=== PATIENT | female | born 1940 | race Caucasian/White ===

== ENCOUNTER → 2016-11-16 | Outpatient (CLI) | payer OTHER, MEDICARE | LOC: FIMAGING 10:47 | PROVIDERS: ATTEND Physician Assistant Surgical | DX: Z09 Encounter for follow-up examination after completed treatment for conditions other than malignant neoplasm (principal); Z98.1 Arthrodesis status ==

== ENCOUNTER → 2017-01-29 | Outpatient (CLI) | payer OTHER, MEDICARE | LOC: FIMAGING 09:22 | PROVIDERS: ATTEND Physician Assistant Surgical | DX: Z47.89 Encounter for other orthopedic aftercare (principal); Z98.1 Arthrodesis status ==

== ENCOUNTER → 2017-02-22 | Outpatient (CLI) | payer OTHER, MEDICARE | LOC: FIMAGING 08:11 | PROVIDERS: ATTEND Physician Assistant | DX: M54.2 Cervicalgia (principal); G95.9 Disease of spinal cord, unspecified; M48.02 Spinal stenosis, cervical region; Z98.1 Arthrodesis status ==

== ENCOUNTER → 2017-05-07 | Outpatient (CLI) | payer OTHER, MEDICARE | LOC: FIMAGING 09:36 | PROVIDERS: ATTEND Physician Assistant | DX: Z09 Encounter for follow-up examination after completed treatment for conditions other than malignant neoplasm (principal); Z98.1 Arthrodesis status ==

== ENCOUNTER → 2017-06-18 | Outpatient (CLI) | payer OTHER, MEDICARE | LOC: FIMAGING 10:03 | PROVIDERS: ATTEND Physician Assistant | DX: M43.22 Fusion of spine, cervical region (principal); Z98.1 Arthrodesis status ==

== ENCOUNTER → 2017-09-05 | Outpatient (CLI) | payer OTHER, MEDICARE | LOC: FIMAGING 09:46 | PROVIDERS: ATTEND Physician Assistant Surgical | DX: Z09 Encounter for follow-up examination after completed treatment for conditions other than malignant neoplasm (principal); Z98.1 Arthrodesis status ==

== ENCOUNTER 2018-01-25 09:58 | Inpatient (IN) | payer OTHER, MEDICARE ==
--- NOTE | 2018-01-25 10:27 | EDPHY ---
General Time Seen by Provider: 01/25/18 10:05 Narrative: CHIEF COMPLAINT: Fall, hip pain HISTORY OF PRESENT ILLNESS: Patient presents by EMS and is seen at time of arrival. She complains of left hip pain status post fall. Just prior to arrival, she was walking when she stepped up onto a curb and lost her balance. She fell backwards, landing on her left hip. She struck her left elbow and left palm. She did not strike her head or lose consciousness. She has no headache or neck pain. No chest, back or abdominal pain. Her only complaint is severe pain in the left hip. Unable to bear weight. No numbness or tingling. Pain radiates into the anterior thigh. No incontinence of bowel or bladder. No trauma or injury elsewhere. No other associated complaints or modifying factors. She feels that this is up- to-date REVIEW OF SYSTEMS: Ten systems reviewed and are negative unless otherwise noted in the HPI PCP: [facility] SPECIALISTS: Dr. Fairchild PAST MEDICAL HISTORY: Cervical radiculopathy, lumbar stenosis, dyslipidemia, neurofibromas PAST SURGICAL HISTORY: Cervical spine surgery, lumbar spine surgery SOCIAL HISTORY: Denies smoking. Lives independently at [place] FAMILY HISTORY: Noncontributory EXAMINATION General Appearance: Alert, no distress Head: normocephalic, atraumatic. No Yepez sign. No raccoon eyes. No depression. Eyes: Pupils equal and round, no conjunctival pallor or injection ENT, Mouth: Mucous membranes moist Neck: Normal inspection, supple, non-tender Respiratory: Lungs are clear to auscultation. No wheezing, rhonchi or crackles Cardiovascular: Regular rate and rhythm. Symmetric radial pulses 2+. Symmetric DP pulses 2+ Gastrointestinal: Abdomen is soft and nontender Back: Kyphotic appearance. non-tender, no bony abnormalities Neurological: GCS 15. A&O, nonfocal, normal gait Skin: Warm and dry, neurofibromas globally. Superficial abrasion to the posterior left elbow and left hypo thenar eminence. No lacerations. Extremities: Deformity and internal rotation of the left hip. Tenderness to palpation of the left greater trochanter. Range of the hip not tested due to deformity and pain. Range of the left ankle symmetric to the right. There are good signs of perfusion to left lower extremity. No tenderness to the other extremities including painless full extension of the left elbow. Psychiatric: Mood and affect normal DIFFERENTIAL DIAGNOSES: Including but not limited to intertrochanteric fracture, subcapital fracture, femoral fracture, strain, sprain, pelvic fracture, abrasions MDM: 10:05 a.m. Mechanical fall with left hip pain and superficial abrasions to the left elbow and left palm. She has no bony tenderness in any location otherwise. She does have some internal rotation of the left hip. I do suspect hip fracture. Her abdominal exam is benign. She has no head strike or loss of consciousness, with no neck tenderness on exam. She is in no acute distress. Her NPO status is 8:00 a.m. Solids and liquids. No previous orthopedic surgeries on the extremities. 10:40 a.m. X-ray as read by me does reveal a left intertrochanteric/femoral neck hip fracture. Chest x-ray as read by me is no acute finding with chronic changes as noted 10:54 a.m. Case discussed with orthopedist Dr. Barnhart. He will consult on the patient. Notified that NPO status is 8:00 a.m.. 10:55 a.m. Case discussed with hospitalist Lauren Batista. Patient be admitted to Dr. Madison. Admitted in stable condition. She has been kept NPO in this emergency department. SUPERVISION: Patient was independently examined, but I discussed the case with my secondary supervising physician Dr. Harmon - Diagnostics Imaging Results: Imaging Impressions Chest X-Ray 01/25/18 10:05 Impression: Comminuted, displaced and angulated, left femoral neck fracture. 2. Portable Chest, 10:28 AM History: Hip fracture Comparison: None Findings: Lungs clear. Heart size and pulmonary vascularity are normal. There is a transverse subcapital left humeral neck fracture of uncertain acuity. The left humeral neck looks normal. No rib fracture is identified. Impression: 1. No evidence for fat embolism. 2. Right humeral neck fracture formerly of unknown chronicity. Correlation with symptoms is suggested. Hip X-Ray 01/25/18 10:05 Impression: Comminuted, displaced and angulated, left femoral neck fracture. 2. Portable Chest, 10:28 AM History: Hip fracture Comparison: None Findings: Lungs clear. Heart size and pulmonary vascularity are normal. There is a transverse subcapital left humeral neck fracture of uncertain acuity. The left humeral neck looks normal. No rib fracture is identified. Impression: 1. No evidence for fat embolism. 2. Right humeral neck fracture formerly of unknown chronicity. Correlation with symptoms is suggested. - History Smoking Status: Never smoked - Objective Vital Signs: Initial Vital Signs Temperature (C) 97.9 F 01/25/18 10:17 Heart Rate 72 01/25/18 10:17 Respiratory Rate 16 01/25/18 10:17 Blood Pressure 159/74 H 01/25/18 10:17 O2 Sat (%) 96 01/25/18 10:17 O2 Delivery Mode Room Air Allergies/Adverse Reactions: No Known Allergies Allergy (Verified 08/08/16 14:21) Home Medications: Medication Instructions Recorded Atorvastatin Calcium [Lipitor 20 20 mg PO DAILY 08/01/16 mg (*)] Acetaminophen [Tylenol 325mg (*)] 325 mg PO DAILY 01/25/18 Laboratory Results: Laboratory Results 01/25/18 10:45 01/25/18 10:45 01/25/18 01/25/18 01/25/18 10:45 10:45 10:45 WBC RBC Hgb Hct MCV MCH MCHC RDW Plt Count PT 13.4 SEC SEC (12.0-15.0) INR 1.00 (0.83-1.16) APTT 27.1 SEC SEC (23.0-38.0) Sodium 134 mEq/L L mEq/L (135-145) Potassium 4.8 mEq/L mEq/L (3.5-5.2) Chloride 104 mEq/L mEq/L (97-110) Carbon Dioxide 19 mEq/l L mEq/l (22-31) Anion Gap 11 mEq/L mEq/L (8-16) BUN 24 mg/dL H mg/dL (7-23) Creatinine 0.6 mg/dL mg/dL (0.6-1.0) Estimated GFR > 60 Glucose 121 mg/dL H mg/dL (70-100) Calcium 9.2 mg/dL mg/dL (8.5-10.4) 25-OH Vitamin D Total 22.4 ng/mL L ng/mL (30.0-100.0) Patient ABO/Rh 01/25/18 01/25/18 10:45 10:45 WBC 13.41 10^3/uL H 10^3/uL (3.80-9.50) RBC 4.38 10^6/uL 10^6/uL (4.18-5.33) Hgb 11.6 g/dL L g/dL (12.6-16.3) Hct 35.9 % L % (38.0-47.0) MCV 82.0 fL fL (81.5-99.8) MCH 26.5 pg L pg (27.9-34.1) MCHC 32.3 g/dL L g/dL (32.4-36.7) RDW 16.6 % H % (11.5-15.2) Plt Count 240 10^3/uL 10^3/uL (150-400) PT INR APTT Sodium Potassium Chloride Carbon Dioxide Anion Gap BUN Creatinine Estimated GFR Glucose Calcium 25-OH Vitamin D Total Patient ABO/Rh A POSITIVE Medications Given: Sodium Chloride (Ns) 1,000 mls @ 75 mls/hr IV CONT ARLINE Stop: 01/26/18 00:49 Last Admin: 01/25/18 11:47 Dose: 1,000 mls Discontinued Medications Morphine Sulfate (Morphine) 2 mg IVP EDNOW ONE Stop: 01/25/18 10:07 Last Admin: 01/25/18 11:14 Dose: 2 mg Ondansetron HCl (Zofran) 4 mg IVP EDNOW ONE Stop: 01/25/18 10:07 Last Admin: 01/25/18 11:13 Dose: 4 mg Departure - Departure Disposition: [facility] Inpatient Acute Clinical Impression: Fracture of femoral neck, left, closed Qualifiers: Encounter type: initial encounter Qualified Code(s): S72.002A - Fracture of unspecified part of neck of left femur, initial encounter for closed fracture Fall Qualifiers: Encounter type: initial encounter Qualified Code(s): W19.XXXA - Unspecified fall, initial encounter Condition: Good
[2018-01-25] MEDS: ONDANSETRON 4 MG/2 ML VIAL IVP ONE (11:13)
[2018-01-25] MEDS ORDERED: ONDANSETRON 4 MG/2 ML VIAL IVP PRN ×2 (11:18→17:29)
[2018-01-25] MEDS ORDERED: ACETAMINOPHEN 325 MG TAB PO PRN (11:18)
[2018-01-25 11:19] LABS: PROTIME(PATIENT) 13.4 SEC (12.0-15.0)
[2018-01-25] MEDS ORDERED: NS 1,000 ML IV SCH (11:30)
--- NOTE | 2018-01-25 11:43 | GHP ---
[f rep st] HISTORY AND PHYSICAL DATE OF ADMISSION: 01/25/2018 CHIEF COMPLAINT: Fall and left hip pain. HISTORY OF PRESENT ILLNESS: This is a 77-year-old female, lives independently, who fell today. She was stepping up on a curb, fell, and hit her left hip. She was not able to move her hip afterwards. She has normal sensation in her left foot after the fall and she is able to move her toes. She feel s better after morphine. She had no preceding chest pain, shortness of breath, or palpitations prior to her fall. She did not lose consciousness or hit her head. She has no cardiovascular or pulmonary medical problems. She is able to easily attain 4 METs. She c an walk indefinitely before getting short of breath and has no problem walking up a flight of stairs. PAST MEDICAL/SURGICAL HISTORY: 1. Hyperlipidemia. 2. Cervical, as well as lumbar, surgeries. 3. Neurofibromatosis. MEDICATIONS: Please see medication reconciliation. ALLERGIES: No known drug allergies. SOCIAL HISTORY: She does not drink or smoke. She is accompanied by her daughter. She lives at [facility]. FAMILY HISTORY: Reviewed and noncontributory. REVIEW OF SYSTEMS: 10-point review of systems is conducted and is negative except per HPI. PHYSICAL EXAM: VITAL SIGNS: Blood pressure 159/74, heart rate 72, respiration rate 16, saturating 9 6% on room air. Temperature is 36.6. GENERAL: The patient is a very pleasant female who is resting comfortably. No acute distress. HEENT: Normocephalic, atraumatic. CARDIOVASCULAR: Regular rate and rhythm. No murmurs, rubs, or gallops. PULMONARY: Lungs clear to auscultation bilaterally. ABD OMEN: Soft, nontender, nondistended. SKIN: Multiple neurofibromas. : No Booth. NEUROLOGIC: A lert and oriented x3. She is moving all extremities. PSYCHIATRIC: Normal mood and affect. EXTREMI TIES: Her left lower extremity to be externally rotated. She has motor and sensation intact in her l eft foot. LABORATORY DATA: White count is 13.4, hemoglobin 11.6. INR is 1.0. Sodium is 134, bicarb was 19. DATA: 1. I discussed this with Ankush Collins. Will plan on surgery later today. 2. I personally viewed and interpreted her hip x-ray. It shows a left hip fracture, intertrochanter ic. 3. I personally viewed and interpreted her chest x-ray. This shows an old right humeral fracture. No pneumonia or other infiltrates. IMPRESSION AND PLAN: 1. Left hip fracture: She will go to the OR today with Dr. Barnhart. She will be nothing by mouth, o n bedrest until then. Will provide adequate pain control, both intravenous, as well as by mouth. Wi ll check a vitamin D level. 2. Perioperative evaluation: She is able to attain 4 METs. This is an urgent surgery. She has a l ow risk for cardiovascular complications perioperatively. 3. Hyperlipidemia: Continue her statin. 4. Neurofibromatosis: No directed treatment at this time. 5. Mild hyponatremia: Should correct when she is able to take adequate by-mouth. 6. Anemia: This is lower than previous. However, her last was checked in 2016. Will check a CBC t omorrow. 7. Deep venous thrombosis prophylaxis: She will need postoperative deep vein thrombosis prophylaxis , will not start prior to surgery. 8. She would like to be full code/full tube. /[id number]/MODL
[2018-01-25] MEDS ORDERED: BUPIVACAINE/EPI 0.5% 30 ML SDV ONE (15:17)
--- NOTE | 2018-01-25 15:45 | PDMN ---
Medical Necessity Medical necessity: est los> 2mn for L hip fx r/t mechanical fall, mild hyponatremia, and anemia; admit for urgent surgical repair, recheck CBC; hx hld , neurofibromatosis; per order and H&P 01/25/18
--- NOTE | 2018-01-25 15:50 | GCON ---
[f rep st] CONSULTATION DATE OF CONSULTATION: 01/25/2018 CHIEF COMPLAINT: Left hip fracture. HISTORY OF PRESENT ILLNESS: The patient is a 77-year-old woman who was stepping up on a curb and mis sed her footing landing across her left hip. She was unable to move afterward. She was brought to [facility] emergency department where x-rays demonstrated an intertrochanteric femur fracture with displaceme nt. She normally lives independently and ambulates independently. She denied any loss of consciousn ess, chest pain, or other focal complaints. She has no other focal complaints currently. PAST MEDICAL HISTORY: Hyperlipidemia, neurofibromatosis. PAST SURGICAL HISTORY: She has had cervical and lumbar surgeries. MEDICATIONS: See medicine reconciliation. ALLERGIES: No known drug allergies. SOCIAL HISTORY: Denies any tobacco, alcohol. She lives at [place]. REVIEW OF SYSTEMS: Negative for current chest pain, shortness of breath, belly pain, back pain, numb ness, tingling, other joint-related complaints. OBJECTIVE: GENERAL: Objectively, this is healthy elderly woman, in no acute distress. She is pleas ant cooperative examination. HEENT: Normocephalic, atraumatic. NECK: Nontender. She has neurofibro matosis throughout her skin. Abrasion to the left elbow. There is no step-off, crepitus or deformity. 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 There is no snuffbox tenderness. Digital tenderness in the bi lateral upper extremities. Negative radial, ulnar and median nerve sensory deficit. Left lower extre mity is shortened and externally rotated. She has tenderness across the left hip, minimal examinatio n is carried out. She has no other focal crepitus or tenderness throughout the knee or bilateral low er extremities. She has no right hip tenderness. Intact sensation to light touch throughout both lo wer extremities. Intact ankle plantar flexion, dorsiflexion, and 2+ dorsalis pedis pulses bilaterall y. X-rays demonstrated a comminuted displaced intertrochanteric femur fracture to her left hip. TREATMENT PLAN: I have recommended surgical stabilization. I have outlined the surgical procedure, risks, benefits, and alternatives. She wished to proceed. Written consent was signed and placed in patient's chart. The left hip was clearly demarcated as the operative site with indelible marker. S he will be given 2 g of Ancef preoperatively. /[id number]/MODL
--- NOTE | 2018-01-25 15:57 | PDANEPAE ---
ANE Past Medical History - Cardiovascular History Hx Hypertension: Yes Hx Arrhythmias: No Hx Chest Pain: No Hx Coronary Artery / Peripheral Vascular Disease: No Hx CHF / Valvular Disease: No Hx Palpitations: No Cardiovascular History Comment: HYPERCHOLESTEREMIA. RECENTLY OFF BP MEDICATIONS - Pulmonary History Hx COPD: No Hx Asthma/Reactive Airway Disease: No Hx Recent Upper Respiratory Infection: No Hx Oxygen in Use at Home: No Hx Sleep Apnea: No - Neurologic History Hx Cerebrovascular Accident: No Hx Seizures: No Hx Dementia: No Neurologic History Comment: HX OF ACDF WITH RAJPAL 12/10/15. NUMBNESS AND TINGLING TO BILATERAL HANDS - Endocrine History Hx Diabetes: No Endocrine History Comment: HYPOTHYROIDISM - Renal History Hx Renal Disorders: No - Liver History Hx Hepatic Disorders: No - Neurological & Psychiatric Hx Hx Neurological and Psychiatric Disorders: No - Cancer History Hx Cancer: No - Congenital Disorder History Hx Congenital Disorders: No - GI History Hx Gastrointestinal Disorders: No - Other Health History Other Health History: WEARS GLASSES. FULL SET OF DENTURES. TUMORS ON SKIN- - Chronic Pain History Chronic Pain: No - Surgical History Prior Surgeries: 12/10/15 ACDF C4-5 C5-6 WITH RAJPAL. CARPAL TUNNEL SURGERY TO RIGHT HAND X2 ANE Review of Systems Review of Systems: ANE Patient History - Allergies Allergies/Adverse Reactions: No Known Allergies Allergy (Verified 08/08/16 14:21) - Home Medications Home Medications: Atorvastatin Calcium [Lipitor 20 mg (*)] 20 mg PO DAILY 08/01/16 [Last Taken Unknown] Acetaminophen [Tylenol 325mg (*)] 325 mg PO DAILY 01/25/18 [Last Taken Unknown] - Smoking Hx Smoking Status: Never smoked - Family Anes Hx Family Hx Anesthesia Complications: NONE ANE Labs/Vital Signs - Labs Result Diagrams: 01/25/18 10:45 01/25/18 10:45 - Vital Signs Blood Pressure: 134/64 Heart Rate: 75 Respiratory Rate: 16 O2 Sat (%): 99 Height: 149.86 cm Weight: 42.638 kg ANE Physical Exam - Airway Neck exam: FROM Mallampati Score: Class 3 Mouth exam: dentures - Pulmonary Pulmonary: no respiratory distress - Cardiovascular Cardiovascular: regular rate and rhythym - ASA Status ASA Status: II ANE Anesthesia Plan Anesthesia Plan: general endotracheal anesthesia
[2018-01-25] MEDS ORDERED: ceFAZolin 2 GM/SWFI 2 GM/20 ML SYR IVP ONE (16:00)
[2018-01-25] MEDS ORDERED: PROPOFOL 200 MG/20 ML VIAL ONE (16:09)
[2018-01-25] MEDS ORDERED: LIDOCAINE 2% 100 MG/5 ML SYR ONE (16:09)
[2018-01-25] MEDS ORDERED: DEXAMETHASONE 4 MG/ML VIAL ONE (16:09)
[2018-01-25] MEDS ORDERED: fentaNYL 100 MCG/2 ML INJ ONE ×2 (16:09→16:26)
[2018-01-25] MEDS ORDERED: METOCLOPRAMIDE 10 MG/2 ML VIAL ONE (16:09)
[2018-01-25] MEDS ORDERED: ROCURONIUM 50 MG/5 ML VIAL ONE (16:09)
[2018-01-25] MEDS ORDERED: SUGAMMADEX SODIUM 200 MG/2 ML VIAL IVP ONE (17:00)
[2018-01-25] MEDS ORDERED: ALBUTEROL 3 ML DEYVIAL IH PRN (17:29)
[2018-01-25] MEDS ORDERED: NALOXONE HCL 0.4 MG/ML INJ IVP PRN (17:29)
[2018-01-25] MEDS ORDERED: fentaNYL 100 MCG/2 ML INJ IVP PRN (17:29)
--- NOTE | 2018-01-25 17:31 | POSTANESTH ---
Post Anesthetic Evaluation Cardiovascular Status: Similar to Pre-Op Cond Respiratory Status: Similar to Pre-op Cond. Level of Consciousness/Mental Status: Mildly Sleepy, Arousable Pain Control: Adequate, Prn Tx Ordered Nausea/Vomiting Control: Adequate, Prn Tx Ordered Complications Possibly Related to Anesthesia: None Noted
[2018-01-26 05:01] LABS: PLATELET COUNT 211 10^3/uL (150-400)
--- NOTE | 2018-01-26 07:09 | SOAPPROG ---
DINAH Progress Note Assessment/Plan: Assessment: s/p orif left intertroch fx Plan:patient demonstrates anterior position of nail within femur. I have recommended return to the operating room for revision. I have outlined the risks, benefits and alternative with her at length. I am concerned that as she mobilizes she will cut out of the anterior cortex of the femoral head. she wishes to proceed with revision after she will remain tdwb 01/26/18 07:05 Subjective: mild to mod groin pain no cp or sob Objective: Vital Signs Temp Pulse Resp BP Pulse Ox 37.1 C 82 16 124/60 H 95 01/26/18 04:00 01/26/18 04:00 01/26/18 04:00 01/26/18 04:00 01/26/18 04:00 Laboratory Results 01/26/18 04:10 01/25/18 01/26/18 01/27/18 05:59 05:59 05:59 Intake Total 2057 Output Total 870 Balance 1187 PT 13.4 SEC (12.0-15.0) 01/25/18 10:45 INR 1.00 (0.83-1.16) 01/25/18 10:45 dressing intact old serrous drainage left lower ext with approx 15 deg internal rotation neg homans adam xrays anterior displacement within femur of nail at intertrochanteric area, comminution at greater trochanter ICD10 Worksheet Patient Problems: Problems Problem Status Onset Fall Acute Fracture of femoral neck, left, closed Acute Lumbar stenosis Acute
[2018-01-26] MEDS ORDERED: BUPIVACAINE/EPI 0.5% 30 ML SDV ONE (07:12)
[2018-01-26] MEDS ORDERED: MIDAZOLAM 2 MG/2 ML VIAL IVP ONE (08:00)
[2018-01-26] MEDS ORDERED: MIDAZOLAM 2 MG/2 ML VIAL ONE (08:01)
--- NOTE | 2018-01-26 08:02 | PDANEPAE ---
ANE History of Present Illness Revision TFN ANE Past Medical History - Cardiovascular History Hx Hypertension: Yes Hx Arrhythmias: No Hx Chest Pain: No Hx Coronary Artery / Peripheral Vascular Disease: No Hx CHF / Valvular Disease: No Hx Palpitations: No Cardiovascular History Comment: HYPERCHOLESTEREMIA. RECENTLY OFF BP MEDICATIONS - Pulmonary History Hx COPD: No Hx Asthma/Reactive Airway Disease: No Hx Recent Upper Respiratory Infection: No Hx Oxygen in Use at Home: No Hx Sleep Apnea: No Sleep Apnea Screening Result - Last Documented: Negative - Neurologic History Hx Cerebrovascular Accident: No Hx Seizures: No Hx Dementia: No Neurologic History Comment: HX OF ACDF WITH RAJPAL 12/10/15. NUMBNESS AND TINGLING TO BILATERAL HANDS - Endocrine History Hx Diabetes: No Hypothyroid: No Hyperthyroid: No Obesity: no Endocrine History Comment: HYPOTHYROIDISM - Renal History Hx Renal Disorders: No - Liver History Hx Hepatic Disorders: No - Neurological & Psychiatric Hx Hx Neurological and Psychiatric Disorders: No - Cancer History Hx Cancer: No - Congenital Disorder History Hx Congenital Disorders: No - GI History GERD: mild Hx Gastrointestinal Disorders: No - Other Health History Other Health History: WEARS GLASSES. FULL SET OF DENTURES. TUMORS ON SKIN- - Chronic Pain History Chronic Pain: No - Surgical History Prior Surgeries: 12/10/15 ACDF C4-5 C5-6 WITH RAJPAL. CARPAL TUNNEL SURGERY TO RIGHT HAND X2 ANE Review of Systems Review of Systems: - Exercise capacity METS (RN): 2 METS ANE Patient History - Allergies Allergies/Adverse Reactions: No Known Allergies Allergy (Verified 08/08/16 14:21) - Home Medications Home medications: home medication list seen and reviewed Home Medications: Atorvastatin Calcium [Lipitor 20 mg (*)] 20 mg PO DAILY 08/01/16 [Last Taken Unknown] Acetaminophen [Tylenol 325mg (*)] 325 mg PO DAILY 01/25/18 [Last Taken Unknown] - NPO status NPO Since - Liquids (Date): 01/26/18 NPO Since - Liquids (Time): 06:00 NPO Since - Solids (Date): 01/26/18 NPO Since - Solids (Time): 06:00 - Anes Hx Anes Hx: no prior problems - Smoking Hx Smoking Status: Never smoked - Family Anes Hx Family Hx Anesthesia Complications: NONE ANE Labs/Vital Signs - Labs Result Diagrams: 01/26/18 04:10 01/25/18 10:45 - Vital Signs Blood Pressure: 124/60 Heart Rate: 82 Respiratory Rate: 16 O2 Sat (%): 95 Height: 149.86 cm Weight: 42.638 kg ANE Physical Exam - Airway Neck exam: decreased ROM Mouth exam: dentures - Pulmonary Pulmonary: no respiratory distress, no rales or rhonchi - Cardiovascular Cardiovascular: regular rate and rhythym, no murmur, rub, or gallop ANE Anesthesia Plan Anesthesia Plan: general endotracheal anesthesia Specialized Airway: video laryngoscope
[2018-01-26] MEDS ORDERED: fentaNYL 100 MCG/2 ML INJ ONE ×3 (08:10→10:16)
[2018-01-26] MEDS ORDERED: PROPOFOL 200 MG/20 ML VIAL ONE ×2 (08:10→08:52)
[2018-01-26] MEDS ORDERED: GLYCOPYRROLATE 0.2 MG/1 ML VIAL ONE (08:52)
[2018-01-26] MEDS ORDERED: ROCURONIUM 50 MG/5 ML VIAL ONE (08:52)
[2018-01-26] MEDS ORDERED: ONDANSETRON 4 MG/2 ML VIAL ONE ×2 (08:52→08:53)
[2018-01-26] MEDS ORDERED: ALBUMIN 5% 250 ML BOTTLE IV ONE (08:57)
[2018-01-26] MEDS ORDERED: ATORVASTATIN CALCIUM 20 MG TAB PO SCH (09:00)
[2018-01-26] MEDS ORDERED: SUGAMMADEX SODIUM 200 MG/2 ML VIAL IVP ONE (09:20)
[2018-01-26] MEDS ORDERED: HYDROmorphONE/DILAUDID 2 MG/ML INJ IVP PRN (09:42)
[2018-01-26] MEDS ORDERED: NALOXONE HCL 0.4 MG/ML INJ IVP PRN (09:42)
[2018-01-26] MEDS: fentaNYL 100 MCG/2 ML INJ IVP PRN ×2 (10:18→10:25)
--- NOTE | 2018-01-26 10:33 | ASMTCMCOM ---
CM Note CM Note Notes: Pt admitted with L hip fx r/t mechanical fall; currently having surgery. PT/OT ordered; awaiting post op evals. Per previous CM notes, pt lives at [facility] in [place]. Called [place] [facility] ([phone]) to confirm; informed pt is indeed a independent living resident. Pt has had [facility] in the past & has also been to [facility]. Pt's daughter Melyssa ([phone]) lives locally. CM will continue to follow. Date Signed: 01/26/2018 10:32 AM Electronically Signed By:Sofia Dockery RN
--- NOTE | 2018-01-26 12:30 | HOSPPROG ---
Hospitalist Progress Note Assessment/Plan: # hip fracture s/p IM nail, returned for revision today by dr barnhart - DVT ppx when ok with Dr Barnhart # suspected pathologic fracture d/t osteoporosis after fall from standing height - f/u PCP for treatment # HLD - statin # neurofibromatosis # hypoNa - recheck tomorrow # low vit D - replete Subjective: returned to the OR this am; denies CP/SOB/N/V; sensation ok in L foot Objective: Vital Signs Temp Pulse Resp BP Pulse Ox 36.5 C 85 16 134/54 H 93 01/26/18 12:13 01/26/18 12:13 01/26/18 12:13 01/26/18 12:13 01/26/18 12:13 Laboratory Results 01/26/18 04:10 01/25/18 01/26/18 01/27/18 05:59 05:59 05:59 Intake Total 2057 1300 Output Total 870 650 Balance 1187 650 PT 13.4 SEC (12.0-15.0) 01/25/18 10:45 INR 1.00 (0.83-1.16) 01/25/18 10:45 chart reviewed hip XR personally reviewed - Physical Exam Constitutional: no apparent distress, appears nourished, other (many neurofibromas) Cardiovascular: regular rate and rhythym, no murmur, rub, or gallop Respiratory: no respiratory distress, no rales or rhonchi, clear to auscultation Gastrointestinal: soft, non-tender abdomen, no palpable masses, No guarding, No rebound, No distension ICD10 Worksheet Patient Problems: Problems Problem Status Onset Lumbar stenosis Acute Fracture of femoral neck, left, closed Acute Fall Acute
[2018-01-26] MEDS: HYDROCODONE/APAP 5/325 TAB PO PRN ×2 (13:26→20:41)
[2018-01-26] MEDS ORDERED: NS 1,000 ML IV SCH (20:00)
[2018-01-26] MEDS: ATORVASTATIN CALCIUM 20 MG TAB PO SCH (20:36)
[2018-01-27] MEDS: HYDROCODONE/APAP 5/325 TAB PO PRN ×2 (02:32→07:51)
[2018-01-27] MEDS: CHOLECALCIFEROL VIT D3 2,000 UNITS TAB/CAP PO SCH (07:51)
[2018-01-27] MEDS ORDERED: LACTULOSE 20 GM/30 ML UDCUP PO PRN (10:18)
[2018-01-27] MEDS ORDERED: MAGNESIUM HYDROXIDE 30 ML UDCUP PO PRN (10:18)
[2018-01-27] MEDS ORDERED: BISACODYL 10 MG SUPP PR PRN (10:18)
[2018-01-27] MEDS ORDERED: POLYETHYLENE GLYCOL 3350 17 GM PKT PO PRN (10:18)
--- NOTE | 2018-01-27 11:12 | HOSPPROG ---
Hospitalist Progress Note Assessment/Plan: # hip fracture s/p IM nail, returned for revision yesterday by dr barnhart - DVT ppx when ok with Dr Barnhart # ABLA - s/p 1U PRBC yesterday - recheck CBC today # suspected pathologic fracture d/t osteoporosis after fall from standing height - f/u PCP for treatment # low vit D - replete # HLD - statin # neurofibromatosis # hypoNa - recheck tomorrow Subjective: ongoing nausea and pain Objective: Vital Signs Temp Pulse Resp BP Pulse Ox 36.9 C 74 16 127/55 H 97 01/27/18 07:17 01/27/18 07:17 01/27/18 07:17 01/27/18 07:17 01/27/18 07:17 Laboratory Results 01/26/18 04:10 01/27/18 05:45 01/26/18 01/27/18 01/28/18 05:59 05:59 05:59 Intake Total 2057 2856 Output Total 870 1730 Balance 1187 1126 PT 13.4 SEC (12.0-15.0) 01/25/18 10:45 INR 1.00 (0.83-1.16) 01/25/18 10:45 high risk on iv narcotics - Physical Exam Constitutional: uncomfortable Cardiovascular: regular rate and rhythym, no murmur, rub, or gallop Respiratory: no respiratory distress, no rales or rhonchi, clear to auscultation Gastrointestinal: soft, non-tender abdomen, no palpable masses Musculoskeletal: other (L hip with gauze that is CDI) ICD10 Worksheet Patient Problems: Problems Problem Status Onset Lumbar stenosis Acute Fracture of femoral neck, left, closed Acute Fall Acute
[2018-01-27] MEDS: ONDANSETRON DISINTEGRATING 4 MG TAB PO PRN ×2 (11:45→17:44)
[2018-01-27] MEDS: oxyCODONE IR 5 MG TAB PO PRN ×2 (11:45→16:09)
[2018-01-27] MEDS ORDERED: DIAZEPAM 5 MG/ML 1 ML SYR IVP PRN (11:51)
[2018-01-27] MEDS ORDERED: DIAZEPAM 5 MG TAB PO PRN (11:55)
[2018-01-27] MEDS: ACETAMINOPHEN 500 MG TAB PO SCH ×2 (16:08→21:52)
--- NOTE | 2018-01-27 17:19 | SOAPPROG ---
SOAP Progress Note Assessment/Plan: Assessment: s/p orif left intertroch fx Plan:patient doing well stable required blood transfusion revision surgery stable slow moving with pt/ot will need snf 01/26/18 07:05 01/27/18 17:18 Subjective: mod pain with mobility to left hip no additional other complaints Objective: Vital Signs Temp Pulse Resp BP Pulse Ox 36.8 C 76 18 138/60 H 94 01/27/18 16:58 01/27/18 16:58 01/27/18 16:58 01/27/18 16:58 01/27/18 16:58 Laboratory Results 01/27/18 11:35 01/27/18 05:45 01/26/18 01/27/18 01/28/18 05:59 05:59 05:59 Intake Total 2057 2856 825 Output Total 870 1730 1000 Balance 1187 1126 -175 PT 13.4 SEC (12.0-15.0) 01/25/18 10:45 INR 1.00 (0.83-1.16) 01/25/18 10:45 dressing intact intact pf,df,ehl toes warm and pink neg homans adma xrays stable alignment evidence of nondisplaced subcapital fx ICD10 Worksheet Patient Problems: Problems Problem Status Onset Fall Acute Fracture of femoral neck, left, closed Acute Lumbar stenosis Acute
--- NOTE | 2018-01-27 18:45 | GOP ---
[f rep st] OPERATIVE REPORT DATE OF OPERATION: 01/25/2018 SURGEON: Jase Barnhart MD PREOPERATIVE DIAGNOSIS: Displaced left intertrochanteric femur fracture. POSTOPERATIVE DIAGNOSIS: Displaced left intertrochanteric femur fracture. PROCEDURE PERFORMED: Open reduction, internal fixation, left intertrochanteric femur fracture FINDINGS: SPECIMENS: None. ESTIMATED BLOOD LOSS: 400 cc. 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 She fell and sustained a commin uted intertrochanteric femur fracture of her left hip. Given the fracture displacement, lack of stab ility I have recommended operative intervention. I have outlined the surgical procedure, risks, bene fits, and alternatives. She wished to proceed. Written consent was signed and placed in patient's c chen. DESCRIPTION OF PROCEDURE: The patient was identified in the preanesthesia area. The left hip clearl y demarcated as the operative site with indelible marker. She was given 2 g of Ancef intravenously e n route to the operative suite. In the OR, general endotracheal anesthesia was administered. Attent ion was turned to the left hip which was sterilely prepped and draped in the usual fashion. A shower curtain drape was utilized. Appropriate time-out procedure was carried out. Attention was first tu rned to the left hip. A percutaneous incision was made proximal to the greater trochanter. A guidew rosa was advanced to the comminuted greater trochanter into the femoral shaft. This was confirmed und er AP and lateral views. The proximal canal was opened, but there was extensive comminution in this area and minimal reaming was obtained. The guidewire was advanced down into a central position in th e distal thigh at the superior pole of the patella on the AP view. No reaming was carried out. A si ze 12 mm x 320 mm nail was selected. This was then placed over the guide wire, felt to be stable marilyn ropriate and placed to the appropriate depth. A separate lateral incision was made and the guide-alatorre dle trocar advanced to the lateral cortex of the femur. A guidewire was advanced into a central posi tion on the AP and lateral views, and this was reamed at the lateral cortex only. An 85 mm head scre w was then placed and confirmed to be fully seated. The proximal set screw was then locked and taken back 1/2 turn to dynamize. The hip was evaluated under image intensification, felt to be stable and appropriate at that time. The wounds were irrigated, closed in layers using 0 Vicryl, 2-0 Monocryl, and brianne. The margins were instilled with 20 cc of 0.5% Marcaine with epinephrine. A sterile dr essing and compressive dressing were applied. The patient was awakened and taken to recovery room in good stable condition. TOTAL TOURNIQUET TIME: None. COMPLICATIONS: None. IMPLANTS: Synthes TFN nail as above. DISPOSITION: To the recovery room, then the floor for postoperative management. She is touchdown we ightbearing. /[id number]/MODL
--- NOTE | 2018-01-27 18:55 | GOP ---
[f rep st] OPERATIVE REPORT DATE OF OPERATION: 01/26/2018 SURGEON: Jase Barnhart MD DENTAL HYGIENE TEACHER: Mitesh Bliss, Bar Supervisor who was a medical necessity for the entirety of the case . PREOPERATIVE DIAGNOSIS: Left intertrochanteric femur fracture. POSTOPERATIVE DIAGNOSIS: Left intertrochanteric femur fracture. PROCEDURE PERFORMED: Revision internal fixation, left intertrochanteric femur fracture. FINDINGS: SPECIMENS: None. ESTIMATED BLOOD LOSS: 200 cc. INDICATIONS: The patient is a 77-year-old woman who sustained a comminuted intertrochanteric femur f racture. She underwent stabilization with a long TFN nail by myself yesterday. Further review of he r x-rays revealed that the nail is anteriorly displaced across the greater trochanter and is resultin g in internal rotation of her lower limb as well as a higher risk for cut out once she begins mobiliz ation. I therefore discussed with her revising the nail. I have outlined the surgical procedure, ri sks, benefits, and alternatives. She wished to proceed. Written consent was signed and placed in e patient's chart. DESCRIPTION OF PROCEDURE: The patient was identified in the preanesthesia area. The left hip clearl y demarcated as the operative site with indelible marker. She was given 2 g of Ancef intravenously e n route to the operative suite. In the OR, general endotracheal anesthesia was administered. Attent ion was turned to the left hip which was sterilely prepped and draped in usual fashion. A shower cur tain drape was utilized with extension for possible distal interlocking screw. Appropriate time-out procedure was carried out. The previous incisions were opened in entirety. A guide was then threade d into the proximal aspect of the nail, and the set screw removed. The lateral incision was then ope shawna, and the guide placed into the femoral head blade, which was removed without difficulty. The ent rosa nail was then removed. Traction was applied across the limb. The greater trochanter was elevate d digitally into a more anterior position. A guidewire was placed into a central position across the central posterior aspect of the tip of the greater trochanter and advanced into the distal femoral s haft. The proximal canal was then opened with the starting reamer. A 340 mm x 12 mm nail was then a dvanced through the hole in the greater trochanter and into the distal shaft. A guidewire was then p laced into a central position across the femoral head on both AP and lateral views, and a new 85 mm h ead screw was then placed. The proximal set screw was then locked and then dynamized, and the equipm ent was withdrawn. The hip was taken through internal and external rotation and was felt to be stabl e and appropriate. The wound was copiously irrigated, closed in layers once again using 0 Vicryl, 2- 0 Monocryl, and brianne. Sterile, compressive dressing was applied. The patient was awakened, extub ated, and taken to recovery room in good, stable condition. SURGEON: Jase Barnhart. TOTAL TOURNIQUET TIME: None. COMPLICATIONS: None. IMPLANTS: As above. DISPOSITION: To the recovery room. /[id number]/MODL
[2018-01-27] MEDS: SENNOSIDES/DOCUSATE SODIUM TAB PO SCH (21:51)
[2018-01-27] MEDS: ATORVASTATIN CALCIUM 20 MG TAB PO SCH (21:52)
[2018-01-28] MEDS: oxyCODONE IR 5 MG TAB PO PRN ×3 (01:24→17:27)
--- NOTE | 2018-01-28 06:56 | SOAPPROG ---
SOAP Progress Note Assessment/Plan: Assessment: s/p orif left intertroch fx Plan:patient doing well stable overnight hct stable following blood transfusion revision surgery stable slow moving with pt/ot will need snf will obtain new xrays today 01/26/18 07:05 01/27/18 17:18 01/28/18 06:54 01/28/18 06:55 Subjective: no new complaint Objective: Vital Signs Temp Pulse Resp BP Pulse Ox 36.7 C 71 16 134/58 H 95 01/28/18 04:00 01/28/18 04:00 01/28/18 04:00 01/28/18 04:00 01/28/18 04:00 Laboratory Results 01/28/18 04:58 01/27/18 05:45 01/27/18 01/28/18 01/29/18 05:59 05:59 05:59 Intake Total 2856 2331 Output Total 1730 1625 Balance 1126 706 PT 13.4 SEC (12.0-15.0) 01/25/18 10:45 INR 1.00 (0.83-1.16) 01/25/18 10:45 very slow with mobility dressing intact neg homans adam intact gross sensation to light touch throughout lower ext toes warm and pink ICD10 Worksheet Patient Problems: Problems Problem Status Onset Fall Acute Fracture of femoral neck, left, closed Acute Lumbar stenosis Acute
--- NOTE | 2018-01-28 06:58 | PDIAF ---
- Diagnosis Diagnosis: left hip fracture Code Status: Full Code - Medication Management Discharge Medications: Medications to Continue on Transfer Atorvastatin Calcium [Lipitor 20 mg (*)] 20 mg PO DAILY 08/01/16 [Last Taken Unknown] Acetaminophen [Tylenol 325mg (*)] 325 mg PO DAILY 01/25/18 [Last Taken Unknown] Discharge Medications: Refer to the Discharge Home Medication list for PRN reason. - Orders Services needed: Physical Therapy Diet Recommendation: no restrictions on diet Diet Texture: Regular Texture Diet Activity/Weight Bearing Restrictions: tdwb. rom as gloria. daily dressing changes. may shower without bandage. no soaking or immersion. f/u at two weeks. seek attn for increasing pain, chest pain, drainage, or other focal complaints Additional Instructions: tdwb rom as gloria daily dressing changes may shower without bandage no soaking or immersion f/u at two weeks seek attn for increasing pain, chest pain, drainage, or other focal complaints - Follow Up Care Current Providers and Referrals: Jesika Felipe MD [Primary Care Provider] - As per Instructions Jase Barnhart MD [Medical Doctor] -
[2018-01-28] MEDS: ACETAMINOPHEN 500 MG TAB PO SCH ×3 (08:05→22:03)
[2018-01-28] MEDS: SENNOSIDES/DOCUSATE SODIUM TAB PO SCH ×2 (08:06→22:03)
[2018-01-28] MEDS: CHOLECALCIFEROL VIT D3 2,000 UNITS TAB/CAP PO SCH (08:06)
--- NOTE | 2018-01-28 12:10 | HOSPPROG ---
Hospitalist Progress Note Assessment/Plan: # hip fracture s/p IM nail, returned for revision by dr barnhart - DVT ppx when ok with Dr Barnhart - possibly tomorrow if h/h stable # ABLA - s/p 3U PRBC total - check h/h tomorrow # suspected pathologic fracture d/t osteoporosis after fall from standing height - f/u PCP for treatment # low vit D - replete # HLD - statin # neurofibromatosis # hypoNa - stable Subjective: sitting on comode; doing better today but still significant L hip pain Objective: Vital Signs Temp Pulse Resp BP Pulse Ox 36.5 C 68 16 149/73 H 93 01/28/18 11:51 01/28/18 11:51 01/28/18 11:51 01/28/18 11:51 01/28/18 11:51 Laboratory Results 01/28/18 04:58 01/27/18 05:45 01/27/18 01/28/18 01/29/18 05:59 05:59 05:59 Intake Total 2856 2331 Output Total 1730 1625 Balance 1126 706 PT 13.4 SEC (12.0-15.0) 01/25/18 10:45 INR 1.00 (0.83-1.16) 01/25/18 10:45 - Physical Exam Constitutional: uncomfortable Eyes: anicteric sclera Ears, Nose, Mouth, Throat: hearing normal Cardiovascular: No edema Respiratory: no respiratory distress Gastrointestinal: No distension Genitourinary: No mejia in urethra Skin: other (numerous neurofibromas) Neurologic: AAOx3 Psychiatric: not anxious ICD10 Worksheet Patient Problems: Problems Problem Status Onset Lumbar stenosis Acute Fracture of femoral neck, left, closed Acute Fall Acute
--- NOTE | 2018-01-28 15:48 | ASMTCMCOM ---
CM Note CM Note Notes: PT rec SNF, pt agreeable. [facility] no bed availability, pt requests referral to [facility] so her sister Jes ([phone]) can visit her. accepts pt who will d/c when medically stable. With pt permission erichsharon Ragsdale was updated. CM to follow. Date Signed: 01/28/2018 03:48 PM Electronically Signed By:SHAYLEE Jennings
[2018-01-28] MEDS: ATORVASTATIN CALCIUM 20 MG TAB PO SCH (22:03)
--- NOTE | 2018-01-29 06:47 | SOAPPROG ---
SOAP Progress Note Assessment/Plan: Assessment: s/p orif left intertroch fx Plan:patient doing well stable overnight hct stable following blood transfusion revision surgery stable slow moving with pt/ot will need snf repeat xrays stable alignment no interval change d/c to snf today hct stable 01/26/18 07:05 01/27/18 17:18 01/28/18 06:54 01/28/18 06:55 01/29/18 06:45 Subjective: no co no cp or sob Objective: Vital Signs Temp Pulse Resp BP Pulse Ox 36.8 C 77 16 137/57 H 96 01/28/18 23:42 01/28/18 23:42 01/28/18 23:42 01/28/18 23:42 01/28/18 23:42 Laboratory Results 01/29/18 04:37 01/27/18 05:45 01/28/18 01/29/18 01/30/18 05:59 05:59 05:59 Intake Total 2331 300 Output Total 1625 550 500 Balance 706 -250 -500 PT 13.4 SEC (12.0-15.0) 01/25/18 10:45 INR 1.00 (0.83-1.16) 01/25/18 10:45 seated on bedside commode deferred ICD10 Worksheet Patient Problems: Problems Problem Status Onset Fall Acute Fracture of femoral neck, left, closed Acute Lumbar stenosis Acute
[2018-01-29] MEDS ORDERED: METHOCARBAMOL 750 MG TAB PO PRN (07:10)
[2018-01-29] MEDS ORDERED: HYDROCODONE/APAP 5/325 TAB PO PRN (07:12)
[2018-01-29 08:22] VITALS: BP 162/77
[2018-01-29] MEDS ORDERED: METHOCARBAMOL 500 MG TAB PO PRN (08:41)
[2018-01-29] MEDS: ACETAMINOPHEN 500 MG TAB PO SCH ×2 (09:30→15:19)
[2018-01-29] MEDS: SENNOSIDES/DOCUSATE SODIUM TAB PO SCH (09:31)
[2018-01-29] MEDS: CHOLECALCIFEROL VIT D3 2,000 UNITS TAB/CAP PO SCH (09:31)
--- NOTE | 2018-01-29 11:11 | PDIAF ---
- Diagnosis Diagnosis: left hip fracture Code Status: Full Code - Medication Management Discharge Medications: Medications to Continue on Transfer Atorvastatin Calcium [Lipitor 20 mg (*)] 20 mg PO DAILY 08/01/16 [Last Taken Unknown] Acetaminophen [Tylenol ES 500 mg (*)] 1,000 mg PO TID tab 01/29/18 [Last Taken Unknown] Cholecalciferol Vit D3 [Vitamin D3 2000 units tab (OTC)] 2,000 units PO DAILY each 01/29/18 [Last Taken Unknown] Enoxaparin [Lovenox] 30 mg SC DAILY syr 01/29/18 [Last Taken Unknown] Methocarbamol [Robaxin 500 mg (*)] 500 mg PO TID PRN tab 01/29/18 [Last Taken Unknown] Polyethylene Glycol 3350 [Miralax 17 gm (*)] 17 gm PO DAILY PRN pkt 01/29/18 [ Last Taken Unknown] Sennosides/Docusate Sodium [Senokot-S] 1 - 2 tab PO BID tab 01/29/18 [Last Taken Unknown] oxyCODONE IR [Oxycodone Ir (*)] 5 - 10 mg PO Q4HRS PRN tab 01/29/18 [Last Taken Unknown] Discharge Medications: Refer to the Discharge Home Medication list for PRN reason. - Orders Services needed: Physical Therapy Diet Recommendation: no restrictions on diet Diet Texture: Regular Texture Diet Activity/Weight Bearing Restrictions: tdwb. rom as gloria. daily dressing changes. may shower without bandage. no soaking or immersion. f/u at two weeks. seek attn for increasing pain, chest pain, drainage, or other focal complaints Additional Instructions: tdwb rom as gloria daily dressing changes may shower without bandage no soaking or immersion f/u at two weeks seek attn for increasing pain, chest pain, drainage, or other focal complaints - Follow Up Care Current Providers and Referrals: Jase Barnhart MD [Medical Doctor] - follow up in 2 weeks Jesika Felipe MD [Primary Care Provider] - As per Instructions
[2018-01-29] MEDS ORDERED: ENOXAPARIN 30 MG/0.3 ML SYR SC SCH (11:15)
--- NOTE | 2018-01-29 11:25 | GDS ---
[f rep st] DISCHARGE SUMMARY DIAGNOSES: 1. Fall, mechanical, with subsequent hip fracture status post IM nail. 2. Acute blood loss anemia status post 3 units of packed red blood cells. 3. Suspected pathologic fracture due to osteoporosis as evidenced by fall from standing height. 4. Low vitamin D, repleting. 5. Hyperlipidemia. 6. Neurofibromatosis. 7. Mild hyponatremia. 8. Urinary retention HOSPITAL COURSE: A 77-year-old female admitted after a fall with a left-sided hip fracture. This was repaired with an intramedullary nail by Dr. Barnhart on . She underwent revision on 01/26/2018. She did have some significant intraoperative blood loss, she required a total of 3 units of packed red blood cells. Her hemoglobin has been stable for 48 hours, it is 12.4 on the day of discharge. She will be placed on recommended 21 days of low-dose for DVT prophylaxis. She has been placed on vitamin D for suspected osteoporosis given fracture with a fall from standing height. She has been unable to urinate, possibly due to narcotics. Booth has been placed prior to discharge. Would recommend trying to remove this in one week or following up with urology as an outpatient DISPOSITION: She is discharged in stable condition to [facility] for additional physical therapy. FOLLOWUP: She should follow up with Dr. Barnhart in 2 weeks given the surgery. She should follow up with her primary care physician for ongoing treatment for osteoporosis. Follow up with Day Harris as needed for urinary retention BILLING: I spent more than 30 minutes on the day of discharge coordinating care. /[id number]/MODL MTDD
--- NOTE | 2018-01-29 11:51 | PDIAF ---
- Diagnosis Diagnosis: left hip fracture Code Status: Full Code - Medication Management Discharge Medications: Medications to Continue on Transfer Atorvastatin Calcium [Lipitor 20 mg (*)] 20 mg PO DAILY 08/01/16 [Last Taken Unknown] Acetaminophen [Tylenol ES 500 mg (*)] 1,000 mg PO TID tab 01/29/18 [Last Taken Unknown] Cholecalciferol Vit D3 [Vitamin D3 2000 units tab (OTC)] 2,000 units PO DAILY each 01/29/18 [Last Taken Unknown] Enoxaparin [Lovenox] 30 mg SC DAILY syr 01/29/18 [Last Taken Unknown] Methocarbamol [Robaxin 500 mg (*)] 500 mg PO TID PRN tab 01/29/18 [Last Taken Unknown] Polyethylene Glycol 3350 [Miralax 17 gm (*)] 17 gm PO DAILY PRN pkt 01/29/18 [ Last Taken Unknown] Sennosides/Docusate Sodium [Senokot-S] 1 - 2 tab PO BID tab 01/29/18 [Last Taken Unknown] oxyCODONE IR [Oxycodone Ir (*)] 5 - 10 mg PO Q4HRS PRN tab 01/29/18 [Last Taken Unknown] Additional Medication Instructions: lovenox 30mg sq daily - stop after 21 days Discharge Medications: Refer to the Discharge Home Medication list for PRN reason. - Orders Services needed: Physical Therapy Diet Recommendation: no restrictions on diet Diet Texture: Regular Texture Diet Activity/Weight Bearing Restrictions: tdwb. rom as gloria. daily dressing changes. may shower without bandage. no soaking or immersion. f/u at two weeks. seek attn for increasing pain, chest pain, drainage, or other focal complaints Additional Instructions: tdwb rom as gloria daily dressing changes may shower without bandage no soaking or immersion f/u at two weeks seek attn for increasing pain, chest pain, drainage, or other focal complaints - Follow Up Care Current Providers and Referrals: Jase Barnhart MD [Medical Doctor] - follow up in 2 weeks Jesika Felipe MD [Primary Care Provider] - As per Instructions Yessica Harris PAC [Physician Cd Mixer Helper] - (2 weeks if unable to dc mejia)
[2018-01-29] MEDS: ONDANSETRON DISINTEGRATING 4 MG TAB PO PRN (12:50)
--- NOTE | 2018-01-29 15:54 | ASMTCMCOM ---
CM Note CM Note Notes: Pt medically stable for d/c to [facility]. Orders sent in [facility]. [facility] with scheduled transport for 16:30. LAILA Mack to call report. Date Signed: 01/29/2018 03:53 PM Electronically Signed By:SHAYLEE Jennings
--- NOTE | 2018-01-29 16:48 | ASDISCHSUM ---
Discharge Information Plan Status:SNF Medically Cleared to Leave: Discharge Date:01/29/2018 04:35 PM D/C Disposition:[facility] Facility ADT D/C Disposition:Home, Routine, Self-Care Projected Discharge Date:01/28/2018 11:00 AM Transportation at D/C:Wheelchair Van Discharge Delay Reason: Follow-Up Date:01/28/2018 11:00 AM Discharge Slot: Final Diagnosis: Placement Information Referral Type:*Alf/SNF Referral ID:[id number] Provider Name:[facility] [place] Address 1:[address] Address 2: City:[place] Selection Factors: State:[place] Patient Contact Information Contact Name:INDERABIODUN Relationship:Daughter Address: City: [facility] Phone: [facility] [address]/Zip Code: Email: Financial Information Financial Class:Medicare Primary Plan Desc:MEDICARE INPATIENT Primary Plan Number:[id number] Secondary Plan Desc:[employer]/MDR SUPPLEMENT Secondary Plan Number:[id number] Assessment Information [facility] CM Progress Note CM Note CM Note Notes: Pt admitted with L hip fx r/t mechanical fall; currently having surgery. PT/OT ordered; awaiting post op evals. Per previous CM notes, pt lives at [facility] in [place]. Called [facility] ([phone]) to confirm; informed pt is indeed a independent living resident. Pt has had [facility] in the past & has also been to [facility]. Pt's daughter Melyssa ([phone]) lives locally. CM will continue to follow. Date Signed: 01/26/2018 10:32 AM Electronically Signed By:Sofia Dockery RN [facility] CM Progress Note CM Note CM Note Notes: PT rec SNF, pt agreeable. [facility] no bed availability, pt requests referral to [facility] so her sister Jes ([phone]) can visit her. accepts pt who will d/c when medically stable. [facility]. CM to follow. Date Signed: 01/28/2018 03:48 PM Electronically Signed By:SHAYLEE Jennings [facility] CM Progress Note CM Note CM Note Notes: Pt medically stable for d/c to [facility]. Orders sent in [facility]. [facility] with scheduled transport for 16:30. LAILA Mack to call report. Date Signed: 01/29/2018 03:53 PM Electronically Signed By:SHAYLEE Jennings Intervention Information Intervention Type:*IM-Signed Date of Service:01/29/2018 11:35 AM Patient Type:Inpatient Staff Member:Jenni Flores Hours: Discipline: Severity: Comment:
== END 2018-01-29 16:35 | DRG 481 ==
LOC: EDBD → EDUNIT# → F3N 18:35
PROVIDERS: ADMIT Student in an Organized Health Care Education/Training Program; ATTEND Student in an Organized Health Care Education/Training Program
DX: M80.052A Age-related osteoporosis with current pathological fracture, left femur, initial encounter for fracture (principal); W10.1XXA Fall (on)(from) sidewalk curb, initial encounter; Y92.480 Sidewalk as the place of occurrence of the external cause; Y99.8 Other external cause status; T84.89XA Other specified complication of internal orthopedic prosthetic devices, implants and grafts, initial encounter; D62 Acute posthemorrhagic anemia; R33.9 Retention of urine, unspecified; T40.605A Adverse effect of unspecified narcotics, initial encounter; E55.9 Vitamin D deficiency, unspecified; E87.1 Hypo-osmolality and hyponatremia; E78.5 Hyperlipidemia, unspecified; E03.9 Hypothyroidism, unspecified; Q85.00 Neurofibromatosis, unspecified; Z98.1 Arthrodesis status
CPT/HCPCS: 96374; 97116-GP; 97161-GP; 97165-GO; 97530-GO; 97530-GP; 97535-GO; C1713; G8978-GP-CM; G8979-GP-CJ; G8987-GO-CL; G8988-GO-CJ; J0690; J1100; J1650; J2001; J2250; J2270; J2405; J2704; J2765; J3010; J3360; P9016; P9021; P9041

== ENCOUNTER → 2018-03-12 | Outpatient (CLI) | payer OTHER, MEDICARE | LOC: BMCIMAGING 13:02 | PROVIDERS: ATTEND Physician Assistant | DX: S72.142D Displaced intertrochanteric fracture of left femur, subsequent encounter for closed fracture with routine healing (principal) ==

== ENCOUNTER → 2018-04-23 | Outpatient (CLI) | payer OTHER, MEDICARE | LOC: BMCIMAGING 13:04 | PROVIDERS: ATTEND Physician Assistant | DX: S72.002D Fracture of unspecified part of neck of left femur, subsequent encounter for closed fracture with routine healing (principal) ==

== ENCOUNTER 2018-07-12 13:15 | Emergency (ER) | payer OTHER, MEDICARE ==
--- NOTE | 2018-07-12 13:34 | EDPHY ---
General - History Smoking Status: Never smoked Time Seen by Provider: 07/12/18 13:31 Narrative: CHIEF COMPLAINT: Fall, shoulder pain, shoulder dislocation HISTORY OF PRESENT ILLNESS: Patient presents with complaints of left shoulder dislocation after fall. She states that she was walking at her residence when she tripped and fell, landing on her shoulder and her upper lip. She denies any head strike or loss of consciousness. No headache. No neck pain. She does have a superficial wound to the lip that has been evaluated. She went to urgent care [facility], where they diagnosed her with a left shoulder dislocation that was unable to be reduced. She is sent here for higher level care. She has ongoing left shoulder pain. No pain anywhere else. No numbness, tingling weakness. No chest, back or abdominal pain. No use of anticoagulants. No other associated complaints or modifying factors. REVIEW OF SYSTEMS: 10 systems were reviewed and negative with the exception of the elements mentioned in the history of present illness. PCP: Dr. Jesika Felipe SPECIALISTS: None currently PAST MEDICAL HISTORY: Neurofibromatosis, hypertension, dyslipidemia, hypothyroid, neck and lumbar osteoarthritis PAST SURGICAL HISTORY: "Neck surgery x3" SOCIAL HISTORY: Nonsmoker. Lives independently at [place] FAMILY HISTORY: Noncontributory EXAMINATION: General Appearance: Alert, no distress Head: normocephalic, atraumatic. No Yepez sign. No raccoon eyes. No depression or deformity. Eyes: Pupils equal and round, no conjunctival pallor or injection ENT, Mouth: Mucous membranes moist Neck: Normal inspection, supple, non-tender Respiratory: No retractions or distress. Lungs clear in all owens Cardiovascular: Regular rate and rhythm. Good signs of perfusion distally with symmetric radial pulses. Back: non-tender, no bony abnormalities Neurological: GCS 15. A&O, nonfocal, light sensory symmetric in the upper extremities. Interossei strength symmetric. No wrist drop. Skin: Warm and dry, no rash. Extensive neurofibromas Extremities: Step-off and tenderness of the left shoulder. Unable to range the left shoulder due to pain. There is no tenderness of the left hand, wrist or elbow. No tenderness of the remainder extremities. All compartments are soft and left upper extremity. Psychiatric: Mood and affect normal DIFFERENTIAL DIAGNOSES: Including but not limited to humerus fracture, shoulder dislocation, shoulder subluxation, sprain, strain MDM: 1:30 p.m. Mechanical fall earlier this morning with left shoulder pain. She was told at outside facility that this with dislocated and they were unable to reduce it. There was no distant with the patient. No imaging available to me. I have ordered repeat shoulder x-ray. She is in no acute distress and neuro intact distally. She has no head injury or loss of consciousness. There is no indication for CT scan of the head at this time. 2:20 p.m. X-ray of the shoulder does show reveal an anterior dislocation with no fracture. I have administered intra-articular Marcaine, plain, 10 mL and will attempt closed reduction without sedation. 2:40 p.m. I have attempted closed reduction without sedation and this is been unsuccessful. I discussed with attending physicians and we will move her to room 2 for procedural sedation. 3:20 p.m. Successful closed reduction with procedural sedation with x-ray pending. Tolerated well. No desaturations. 3:50 p.m. Post reduction film so successful anatomic alignment. No obvious fracture. We discussed continual use of her sling. We discussed keeping the arm in adduction. We discussed mandatory follow up with Orthopedics for definitive care. We discussed ice, Tylenol and rest. We discussed ED precautions for return of pain or suspected dislocation. I have answered all her questions. She is comfortable this plan discharged home well-appearing, in stable condition. Transportation is here from [place] to take her home. PROCEDURE: Closed reduction of shoulder Consent: Verbal Location: Left shoulder, anterior dislocation Anesthesia: Intra-articular bupivacaine, 0.5% plain. 10 mL with procedural sedation by Dr. Samuel Procedure: After time-out and good procedural sedation, the left arm was placed in traction with countertraction by sheet. Was able to abduct and externally rotate the arm with good reduction. This did initially slipped back into subluxation as she moved her arms, but I was able to easily reduce the shoulder again. Complications: None Post-reduction film: Successful reduction SUPERVISION: This patient was independently evaluated without direct involvement of or examination by the attending physician. CONSULTATION: None. Orthopedic referral (Ankush Collins) Medical Decision Making: Procedure: Procedural sedation. Indication: Shoulder reduction. A pre-sedation evaluation was completed on the patient just prior to the procedure. Patient is an appropriate candidate for procedural sedation with a normal 3-3-2 rule assessment and a Mallampati airway score of class 2. The risks of the sedation were discussed including but not limited to dysrhythmia, need for airway intervention or general anesthesia, disability, ; and verbal consent obtained. A timeout was observed and patient's identity confirmed. The patient was sedated with propofol 30 mg. The patient was monitored with continuous pulse oximetry, capnography, and director multiple sclerosis center. There were no complications and no significant hypoxemia. I remained at the bedside for the sedation. The total time I spent in the procedural sedation was 16 minutes. (Kali Samuel) - Diagnostics Imaging Results: Imaging Impressions Shoulder X-Ray 07/12/18 13:34 Impression: Anterior dislocation. Shoulder X-Ray 07/12/18 15:15 Impression: 1. Good alignment of left humeral head in the glenoid fossa postreduction. - Objective Vital Signs: Initial Vital Signs Temperature (C) 36.4 C 07/12/18 13:23 Heart Rate 75 07/12/18 13:23 Respiratory Rate 16 07/12/18 13:23 Blood Pressure 189/86 H 07/12/18 13:23 O2 Sat (%) 94 07/12/18 13:23 O2 Delivery Mode [Post Nasal Cannula Procedure 2nd] O2 Delivery Mode [Post Non-Rebreather Mask Procedure 1st] O2 Delivery Mode [Procedural Room Air 1st] O2 Delivery Mode [.Immediate Non-Rebreather Mask Pre-Procedure] O2 Delivery Mode Room Air O2 (L/minute) [Post Procedure 2 2nd] O2 (L/minute) [Post Procedure 15 1st] O2 (L/minute) [Procedural 1st] 15 O2 (L/minute) [.Immediate Pre- 15 Procedure] Allergies/Adverse Reactions: No Known Allergies Allergy (Verified 04/29/18 15:21) Home Medications: Medication Instructions Recorded Atorvastatin Calcium [Lipitor 20 20 mg PO DAILY 16 mg (*)] Acetaminophen [Tylenol ES 500 mg 1,000 mg PO TID tab 01/29/18 (*)] Cephalexin [Keflex (RX)] 500 mg PO TID 7 Days cap 04/29/18 Levothyroxine 04/29/18 Departure - Departure Disposition: Home, Routine, Self-Care Clinical Impression: Anterior dislocation of left shoulder Qualifiers: Encounter type: initial encounter Qualified Code(s): S43.015A - Anterior dislocation of left humerus, initial encounter Fall Qualifiers: Encounter type: initial encounter Qualified Code(s): W19.XXXA - Unspecified fall, initial encounter Condition: Good Instructions: Shoulder Dislocation (ED), Fall Prevention (ED) Additional Instructions: 1. Medications as discussed as needed, including ibuprofen 600mg every 8 hours as needed. Do not take in conjunction with anticoagulants or other NSAIDs 2. Follow up with Orthopedics for definitive care 3. Rest, ice and elevation often. 4. ED precautions as discussed for worsening pain, redness, fever, changes in range of motion, changes in sensation Referrals: Jase Barnhart MD [Medical Doctor] - As per Instructions
[2018-07-12] MEDS ORDERED: PROPOFOL 200 MG/20 ML VIAL ONE (14:58)
[2018-07-12 16:02] VITALS: BP 198/83
--- NOTE | 2018-07-12 21:12 | ASMTCMCOM ---
CM Note CM Note Notes: Requested to assist with getting pt back to her [facility] apartment at [facility]. Called and spoke w/staff; they are able to send a transportation van to pick pt up. CM available for further assistance if needed. Date Signed: 07/12/2018 09:12 PM Electronically Signed By:Jyoti Sanon RN
== END 2018-07-12 16:02 | disposition home or self-care (01) ==
LOC: EDUNIT#
PROC: 0RSKXZZ Reposition Left Shoulder Joint, External Approach (ICD-10-PCS; principal; 2018-07-12)
DX: S43.015A Anterior dislocation of left humerus, initial encounter (principal); W01.0XXA Fall on same level from slipping, tripping and stumbling without subsequent striking against object, initial encounter; Y92.019 Unspecified place in single-family (private) house as the place of occurrence of the external cause; I10 Essential (primary) hypertension; E78.5 Hyperlipidemia, unspecified; E03.9 Hypothyroidism, unspecified
CPT/HCPCS: 23655; 73030; 99283; J2704

== ENCOUNTER → 2018-07-12 | Outpatient (CLI) | payer OTHER, MEDICARE | LOC: BMCIMAGING 10:29 | PROVIDERS: ATTEND Family Medicine | DX: S43.085A Other dislocation of left shoulder joint, initial encounter (principal) ==

== ENCOUNTER → 2018-09-08 | Outpatient (CLI) | payer OTHER, MEDICARE | LOC: FIMAGING 07:39 | PROVIDERS: ATTEND Family Medicine | DX: H53.462 Homonymous bilateral field defects, left side (principal) ==

== ENCOUNTER → 2019-03-15 | Outpatient (CLI) | payer OTHER, MEDICARE | LOC: BMCIMAGING 10:46 ==